=== PATIENT | female | born 1950 | race Caucasian/White ===

== ENCOUNTER → 2020-12-04 | Outpatient (CLI) | payer MEDICARE, OTHER | LOC: MAMO 08:57 | DX: Z12.31 Encounter for screening mammogram for malignant neoplasm of breast (principal) | CPT/HCPCS: 77063; 77067 ==

== ENCOUNTER 2021-03-24 16:46 | Emergency (ER) | payer MEDICARE, OTHER | END 2021-03-24 19:16 | disposition home or self-care (01) | LOC: ER1 16:46 | DX: S20.212A Contusion of left front wall of thorax, initial encounter (principal); E11.9 Type 2 diabetes mellitus without complications; I10 Essential (primary) hypertension; Z90.710 Acquired absence of both cervix and uterus; Z88.5 Allergy status to narcotic agent; W01.0XXA Fall on same level from slipping, tripping and stumbling without subsequent striking against object, initial encounter | CPT/HCPCS: 71111; 99283 ==

== ENCOUNTER 2021-06-03 16:19 | Emergency (ER) | payer MEDICARE, OTHER ==
[2021-06-03] MEDS ORDERED: ZOFRAN ODT 4 MG4 MG PO (20:10)
[2021-06-03] MEDS ORDERED: AUGMENTIN 875-1 EACH PO (20:10)
[2021-06-03] MEDS ORDERED: LODINE CAP 300300 MG PO (20:10)
== END 2021-06-03 21:09 | disposition home or self-care (01) ==
LOC: ER1 16:19
DX: S51.851A Open bite of right forearm, initial encounter (principal); S51.811A Laceration without foreign body of right forearm, initial encounter; I11.9 Hypertensive heart disease without heart failure; Z88.5 Allergy status to narcotic agent; Z91.041 Radiographic dye allergy status; Z23 Encounter for immunization; W54.0XXA Bitten by dog, initial encounter; Y92.009 Unspecified place in unspecified non-institutional (private) residence as the place of occurrence of the external cause
CPT/HCPCS: 12001; 12002; 73090; 73100; 90471; 90715; 99283

== ENCOUNTER → 2021-06-22 | Day surgery (SDC) | payer MEDICARE, OTHER ==
[~2021-06-22] MED LIST: 8 HOUR PAIN RE650 MG PO; ASPIRIN EC81 MG PO; AUGMENTIN 875-1 EACH PO; CLARITIN10 MG PO; CYMBALTA60 MG PO; FENOFIBRATE160 MG PO; FERROUS SULFAT325 M2 PO; LEVOTHYROXINE50 MC1 PO; LODINE CAP 300300 MG PO; METFORMIN HCL1000 MG PO; MYCOSTATIN100000 UTS PO; NEURONTIN800 MG PO; PROTONIX20 MG PO; SINGULAIR10 MG PO; TOPROL XL 100100 MG PO; VITAMIN B12-FO1 EACH PO; ZESTRIL 40 MG T40 MG PO; ZOCOR40 MG PO; ZOFRAN ODT 4 MG4 MG PO; ZOFRAN4 MG PO; ZYRTEC10 M3 PO
== END | disposition home or self-care (01) ==
LOC: OR 06:47
DX: R19.7 Diarrhea, unspecified (principal); D12.2 Benign neoplasm of ascending colon; K57.30 Diverticulosis of large intestine without perforation or abscess without bleeding; K64.4 Residual hemorrhoidal skin tags; M19.90 Unspecified osteoarthritis, unspecified site; I25.10 Atherosclerotic heart disease of native coronary artery without angina pectoris; E11.42 Type 2 diabetes mellitus with diabetic polyneuropathy; E11.21 Type 2 diabetes mellitus with diabetic nephropathy; K21.9 Gastro-esophageal reflux disease without esophagitis; I10 Essential (primary) hypertension; E78.00 Pure hypercholesterolemia, unspecified; F17.290 Nicotine dependence, other tobacco product, uncomplicated; Z88.5 Allergy status to narcotic agent; Z79.82 Long term (current) use of aspirin; Z72.89 Other problems related to lifestyle; Z20.822 Contact with and (suspected) exposure to COVID-19
CPT/HCPCS: 82962; J2704; J7120

== ENCOUNTER → 2021-07-15 | Outpatient (CLI) | payer MEDICARE, OTHER | LOC: RAD 10:34 | DX: M54.42 Lumbago with sciatica, left side (principal); M47.816 Spondylosis without myelopathy or radiculopathy, lumbar region | CPT/HCPCS: 72100 ==